=== PATIENT | female | born 1960 | race Caucasian/White ===

== ENCOUNTER → 2017-10-30 | Day surgery (SDC) | payer SELFPAY ==
[~2017-10-30] MED LIST: BASAGLAR SC; FENTANYL CITRATE/PF 100MCG/2 ML INJ ONE; LISINOPRIL10 MG PO; METFORMIN HCL500 MG PO; MIDAZOLAM HCL 2 MG/2 ML VIAL ONE; OR PHACO EYE KIT ONE; PREOP PHACO EYE KIT ONE; TOBRAMYCIN/DEXAMETHASONE(OPTH) 3.5 GM TUBE ONE
== END | disposition home or self-care (01) ==
LOC: OR 09:26
PROVIDERS: ATTEND Ophthalmology
DX: H25.11 Age-related nuclear cataract, right eye (principal); E11.9 Type 2 diabetes mellitus without complications; I10 Essential (primary) hypertension; Z88.2 Allergy status to sulfonamides; Z79.4 Long term (current) use of insulin
CPT/HCPCS: 36415; 66984; 82948; J2250; V2632

== ENCOUNTER → 2017-11-20 | Day surgery (SDC) | payer SELFPAY ==
[~2017-11-20] MED LIST changes: -TOBRAMYCIN/DEXAMETHASONE(OPTH) 3.5 GM TUBE ONE
[2017-11-20 14:30] VITALS: BP 132/86
== END | disposition home or self-care (01) ==
LOC: OR 10:55
PROVIDERS: ATTEND Ophthalmology
DX: H25.12 Age-related nuclear cataract, left eye (principal); J32.9 Chronic sinusitis, unspecified; I10 Essential (primary) hypertension; E11.9 Type 2 diabetes mellitus without complications; Z88.2 Allergy status to sulfonamides; Z79.84 Long term (current) use of oral hypoglycemic drugs; Z86.73 Personal history of transient ischemic attack (TIA), and cerebral infarction without residual deficits
CPT/HCPCS: 36415; 66984; 82948; J2250; V2632